=== PATIENT | female | born 1990 | race American Indian/Alaskan Native ===

== ENCOUNTER 2019-05-29 16:06 | Emergency (ER) | payer BC ==
--- NOTE | 2019-05-29 18:33 | Emergency Department Report ---
ED Headache HPI - General Chief Complaint: Headache Stated Complaint: NUMBNESS/VOMITING/N/V Time Seen by Provider: 05/29/19 18:33 - History of Present Illness Initial Comments: 29-year-old -[place] female presents to the emergency stating that she started having right eye tingling that is constant, headache in the left eye and left side headache and left headache behind left eye. Patient does admit to photophobia. Patient states that her right hand started tingling and radiating proximal. Patient states that is constant. Patient reports no past medical history has no known drug allergies no recent injuries and currently on no meds. Patient does not have a primary care provider. Timing/Duration: 1-3 hours, constant Quality: moderate Head Injury Location: temporal, occipital Recent Head Trauma: no recent headache/trauma Associated Symptoms: nausea/vomiting (last vomited at 4 PM). denies: facial pain, fever/chills, loss of consciousness, nasal congestion, nasal drainage, numbness in legs/feet, vision changes, weakness Allergies/Adverse Reactions: Allergies No Known Allergies Allergy (Unverified 01/22/15 05:09) Home Medications: Ambulatory Orders Fluconazole [Diflucan TAB] 150 mg PO ONCE #1 tablet 05/31/15 Ibuprofen [Motrin 600 MG tab] 600 mg PO Q8H PRN #30 tablet 05/31/15 ED Review of Systems ROS: Stated complaint: NUMBNESS/VOMITING/N/V Other details as noted in HPI Comment: All other systems reviewed and negative ED Past Medical Hx - Past Medical History Previous Medical History?: No Hx Hypertension: No Hx CVA: No Hx Heart Attack/AMI: No Hx Congestive Heart Failure: No Hx Diabetes: No Hx Deep Vein Thrombosis: No Hx Pulmonary Embolism: No Hx GERD: No Hx Liver Disease: No Hx Renal Disease: No Hx Sickle Cell Disease: No Hx Arthritis: No Hx Headaches / Migraines: No Hx Seizures: No Hx Kidney Stones: No Hx Psychiatric Treatment: No Hx Asthma: No Hx COPD: No Hx Tuberculosis: No Hx Dementia: No Hx HIV: No - Surgical History Past Surgical History?: No Hx Coronary Stent: No Hx Open Heart Surgery: No Hx Pacemaker: No Hx Internal Defibrillator: No Hx Cholecystectomy: No Hx Appendectomy: No Hx Breast Surgery: No - Social History Smoking Status: Never Smoker Substance Use Type: None - Medications Home Medications: Home Medications Medication Instructions Recorded Confirmed Last Taken Type Fluconazole [Diflucan TAB] 150 mg PO ONCE #1 tablet 05/31/15 Unknown Rx Ibuprofen [Motrin 600 MG tab] 600 mg PO Q8H PRN #30 tablet 05/31/15 Unknown Rx ED Physical Exam - General Limitations: No Limitations General appearance: alert, in no apparent distress, obese - Head Head exam: Present: atraumatic, normocephalic - Eye Eye exam: Present: normal appearance - ENT ENT exam: Present: mucous membranes moist - Neck Neck exam: Present: normal inspection, full ROM. Absent: tenderness - Respiratory Respiratory exam: Present: normal lung sounds bilaterally. Absent: respiratory distress - Cardiovascular Cardiovascular Exam: Present: regular rate, normal rhythm. Absent: systolic murmur, diastolic murmur, rubs, gallop - Back Exam Back exam: Present: normal inspection, full ROM - Neurological Exam Neurological exam: Present: alert, oriented X3 - Expanded Neurological Exam Expanded Cranial nerves: EOM's Intact: Normal, Gag Reflex: Normal, Tongue Deviation: N ormal, Nystagmus: Normal, Facial Sensation: Normal, Facial Palsy with Forehead Movement: Normal, Facial Palsy without Forehead Movement: Normal Cerebellar function: Finger to Nose: Normal, Heel to Reddy: Normal, Romberg: Normal Upper motor neuron: Carl Neglect: Normal, Pronator Drift: Normal, Sensory Extinction: Normal Sensory exam: Upper Extremity Light Touch: Normal, Upper Extremity Pin Prick: Normal, Upper Extremity Temperature: Normal, UE 2 Point Discrimination: Normal, Lower Extremity Light Touch: Normal, Lower Extremity Pin Prick: Normal, Lower Extremity Temperature: Normal, LE 2 Point Discrimination: Normal Motor strength exam: RUE: 4, LUE: 4, RLE: 4, LLE: 4 Best Eye Response (Nichole): (4) open spontaneously Best Motor Response (Piggott): (6) obeys commands Best Verbal Response (Piggott): (5) oriented Piggott Total: 15 - Psychiatric Psychiatric exam: Present: normal affect, normal mood - Skin Skin exam: Present: warm, dry, intact, normal color. Absent: rash ED Course Vital Signs 05/29/19 05/29/19 16:10 18:59 Temperature 97.9 F Pulse Rate 68 Respiratory 16 16 Rate Blood Pressure 136/61 O2 Sat by Pulse 98 Oximetry ED Medical Decision Making - Lab Data Result diagrams: 05/29/19 19:00 - Radiology Data Radiology results: report reviewed Patient: AILEEN DOUGLAS MR#: [id number] : 1990 Acct:[id number] Age/Sex: 29 / F ADM Date: 05/29/19 Loc: ED Attending Dr: Ordering Physician: AARON CHAN Date of Service: 05/29/19 Procedure(s): CT head/brain wo con Accession Number(s): [id number] cc: AARON CHAN NONENHANCED CT SCAN OF THE HEAD: INDICATION / CLINICAL INFORMATION: 29 years Female; headache. TECHNIQUE: Routine CT head without contrast. All CT scans at this location are performed using CT dose reduction for ALARA by means of automated exposure control. COMPARISON: None. FINDINGS: BRAIN / INTRACRANIAL CONTENTS: No acute hemorrhage, mass effect, midline shift, hydrocephalus, or acute, large territorial infarct. No chronic infarct or focal atrophy cerebral hemispheres are normal. However, cerebellar folia are prominent in the vermis suggesting mild volume loss.. No significant white matter abnormality. CRANIOCERVICAL JUNCTION: No significant abnormality. ORBITS: No significant abnormality of visualized orbits. SINUSES / MASTOIDS: No significant abnormality of the visualized paranasal sinuses or mastoid air cells. ADDITIONAL FINDINGS: Suboccipital nodes are seen bilaterally. IMPRESSION: No acute parenchymal lesion in the brain Signer Name: Lacie Escobar MD Signed: 05/29/2019 7:55 PM Workstation Name: [id number] Transcribed By: BS Dictated By: Lacie Jewell MD Electronically Authenticated By: Lacie Jewell MD Signed Date/Time: 05/29/191954 DD/ 49 TD/TT: - Medical Decision Making 29-year-old -[place] female presents to the emergency stating that she started having right eye tingling that is constant, headache in the left eye and left side headache and left headache behind left eye. Patient does admit to photophobia. Patient states that her right hand started tingling and radiating proximal. Patient states that is constant. Patient reports no past medical history has no known drug allergies no recent injuries and currently on no meds. Patient does not have a primary care provider. Discuss CT findings and labs attending Dr. Stephan Winston. She recommends patient to follow up with neurology. I discussed the patient that she needs is follow up with neurology patient be referred to Dr. Melgoza. Also discussed with patient morbid obesity and we'll refer her to Dr. Gonzales. Critical care attestation.: If time is entered above; I have spent that time in minutes in the direct care of this critically ill patient, excluding procedure time. ED Disposition Clinical Impression: Headache, Numbness and tingling in right hand, Severely overweight Disposition: DC-01 TO HOME OR SELFCARE Is pt being admited?: No Does the pt Need Aspirin: No Condition: Stable Additional Instructions: Take Tylenol as needed for headache. Follow-up with neurology for headache and tingling of hands. Please follow-up with Dr. Gonzales general surgeon to discuss bariatric management and treatment. Referrals: PRIMARY CARE, [Primary Care Provider] - 3-5 Days STEFFI MELGOZA MD [Referring] - 3-5 Days RADHA GONZALES MD [Staff Physician] - 3-5 Days Forms: Work/School Release Form(ED), Accompanied Note
[2019-05-29] MEDS ORDERED: ACETAMINOPHEN 500 MG TAB PO ONE (18:52)
[2019-05-29 19:12] LABS: Basophils % (Auto) 0.4 % (0.0-1.8); Eosinophils # (Auto) 0.1 K/mm3 (0.0-0.4); Eosinophils % (Auto) 1.3 % (0.0-4.3); Hemoglobin 12.3 gm/dl (10.1-14.3); Lymphocytes # (Auto) 1.4 K/mm3 (1.2-5.4); Lymphocytes % (Auto) 19.5 % (13.4-35.0); Monocytes # (Auto) 0.5 K/mm3 (0.0-0.8); Monocytes % (Auto) 6.3 % (0.0-7.3)
[2019-05-29 19:15] LABS: Mean Corpuscular HGB Conc 33 % (30-34); Mean Corpuscular Volume 87 fl (79-97); Platelet Count 271 K/mm3 (140-440); Red Blood Count 4.39 M/mm3 (3.65-5.03); Red Cell Distribution Width 13.3 % (13.2-15.2)
--- NOTE | 2019-05-29 19:59 | Cat Scan Report ---
NONENHANCED CT SCAN OF THE HEAD: INDICATION / CLINICAL INFORMATION: 29 years Female; headache. TECHNIQUE: Routine CT head without contrast. All CT scans at this location are performed using CT dos e reduction for ALARA by means of automated exposure control. COMPARISON: None. FINDINGS: BRAIN / INTRACRANIAL CONTENTS: No acute hemorrhage, mass effect, midline shift, hydrocephalus, or ac kaw, large territorial infarct. No chronic infarct or focal atrophy cerebral hemispheres are normal. However, cerebellar folia are prominent in the vermis suggesting mild volume loss.. No significant wh ite matter abnormality. CRANIOCERVICAL JUNCTION: No significant abnormality. ORBITS: No significant abnormality of visualized orbits. SINUSES / MASTOIDS: No significant abnormality of the visualized paranasal sinuses or mastoid air helena ls. ADDITIONAL FINDINGS: Suboccipital nodes are seen bilaterally. IMPRESSION: No acute parenchymal lesion in the brain Signer Name: Lacie Escobar MD Signed: 05/29/2019 7:55 PM Workstation Name: [id number]
[2019-05-29 20:32] VITALS: BP 135/43
[2019-05-29 20:34] LABS: Bilirubin,Urine NEG (Negative); Blood,Urine MOD (Negative); Color,Urine Yellow (Yellow); Mucus,Urine FEW /HPF; Protein,Urine <15 mg/dL mg/dL (Negative); Urobilinogen,Urine < 2.0 mg/dL (<2.0); WBC,Urine < 1.0 /HPF (0.0-6.0)
== END 2019-05-29 20:54 | disposition home or self-care (01) ==
LOC: ED 16:06
DX: R51 Headache (principal); R20.0 Anesthesia of skin; R20.2 Paresthesia of skin; E66.3 Overweight; Z68.43 Body mass index [BMI] 50.0-59.9, adult; Z79.899 Other long term (current) drug therapy
CPT/HCPCS: 36415; 70450; 81001; 85025